=== PATIENT | female | born 1980 | race Caucasian/White ===

== ENCOUNTER 2020-08-22 21:24 | Emergency (ER) | payer OTHER, SELFPAY ==
[~2020-08-22] VITALS: Ht 175.3 cm; Wt 98.6 kg
[2020-08-22 21:25] VITALS: BP 107/64
== END 2020-08-23 03:29 | disposition left against medical advice (07) ==
LOC: M ED 21:24
DX: Z53.21 Procedure and treatment not carried out due to patient leaving prior to being seen by health care provider (principal)

== ENCOUNTER 2020-08-25 11:36 | Emergency (ER) | payer OTHER, SELFPAY ==
[~2020-08-25] VITALS: Ht 175.3 cm; Wt 96.9 kg
[2020-08-25] MEDS ORDERED: OSEL75CA2 (11:47)
[2020-08-25] MEDS ORDERED: PROA1AER2 (11:47)
[2020-08-25] MEDS ORDERED: NS 1,000 ML IV ONE (12:15)
[2020-08-25 12:49] LABS: HEMATOCRIT 40.5 % (36.0-47.0); HEMOGLOBIN 12.8 g/dl (12.0-15.5); MEAN CORPUSCULAR HEMOGLOBIN 26.9 pg (27.0-33.0); MEAN CORPUSCULAR HGB CONC 31.6 g/dl (32.0-36.5); MEAN CORPUSCULAR VOLUME 85.1 fl (80.0-96.0); PLATELET COUNT, AUTOMATED 185 10^3/uL (150-450); RED BLOOD COUNT 4.76 10^6/uL (4.00-5.40); WHITE BLOOD COUNT 3.4 10^3/uL (4.0-10.0)
[2020-08-25 13:13] LABS: ATYPICAL LYMPH 2 % (0-5); LYMPHOCYTES 23 % (16-44); MONOCYTES 3 % (0-5); NEUTROPHILS 66 % (28-66); PLATELET ESTIMATE NORMAL (NORMAL)
[2020-08-25 14:03] VITALS: BP 128/72
== END 2020-08-25 14:05 | disposition home or self-care (01) ==
LOC: M ED 11:36
DX: U07.1 COVID-19 (principal)

== ENCOUNTER → 2020-08-28 | Outpatient (CLI) | payer OTHER, SELFPAY ==
[~2020-08-28] MED LIST: OSEL75CA2; PROA1AER2
== END ==
LOC: M LABSMTC 13:10
PROVIDERS: ATTEND Pediatrics
DX: Z20.822 Contact with and (suspected) exposure to COVID-19 (principal)

== ENCOUNTER → 2021-01-25 | Outpatient (REF) | payer OTHER ==
[2021-01-25 16:53] LABS: BASO % 0.4 % (0.0-1.0); EOS # 0.1 10^3/uL (0.0-0.5); EOS % 1.7 % (0.0-3.0); HEMATOCRIT 40.1 % (36.0-47.0); HEMOGLOBIN 12.8 g/dl (12.0-15.5); LYMPH # 2.2 10^3/uL (1.5-5.0); LYMPH % 26.6 % (24.0-44.0); MEAN CORPUSCULAR HEMOGLOBIN 26.4 pg (27.0-33.0); MEAN CORPUSCULAR HGB CONC 31.9 g/dl (32.0-36.5); MEAN CORPUSCULAR VOLUME 82.9 fl (80.0-96.0); MONO # 0.6 10^3/uL (0.0-0.8); MONO % 7.6 % (2.0-8.0); NEUTROPHILS # 5.2 10^3/uL (1.5-8.5); NEUTROPHILS % 63.3 % (36.0-66.0); PLATELET COUNT, AUTOMATED 419 10^3/uL (150-450); RED BLOOD COUNT 4.84 10^6/uL (4.00-5.40); WHITE BLOOD COUNT 8.1 10^3/uL (4.0-10.0)
[2021-01-25 17:13] LABS: ESTRADIOL 109.9 PG/ML; FOLLICLE STIMULATING HORMONE 4.1 mIU/mL; FREE T4 0.84 NG/DL (0.76-1.46); LUTEINIZING HORMONE 3.7 mIU/mL; THYROID STIMULATING HORMONE 0.908 uIU/ML (0.358-3.740)
== END ==
LOC: M LAB REF 16:04
PROVIDERS: ATTEND Obstetrics & Gynecology
DX: N92.1 Excessive and frequent menstruation with irregular cycle (principal)

== ENCOUNTER → 2021-04-27 | Outpatient (CLI) | payer OTHER ==
[~2021-04-27] MED LIST changes: +D31000TA2 PO; +MULTTAB61 PO; +VITA500C24 PO; +ZINC1TAB2 PO
== END ==
LOC: M LABSMTC 11:19
PROVIDERS: ATTEND Anesthesiology
DX: Z01.812 Encounter for preprocedural laboratory examination (principal); Z20.822 Contact with and (suspected) exposure to COVID-19

== ENCOUNTER 2021-05-02 06:07 | Day surgery (SDC) | payer OTHER ==
[~2021-05-02] VITALS: Ht 175.3 cm; Wt 98.5 kg
[~2021-05-02 06:07] MED LIST changes: +LR 1,000 ML IV ONE; +ceFAZolin SOD 2 GM in IV 1 EA IV ONE
[2021-05-02 06:49] LABS: HEMATOCRIT 36.9 % (36.0-47.0); HEMOGLOBIN 11.4 g/dl (12.0-15.5); MEAN CORPUSCULAR HEMOGLOBIN 24.8 pg (27.0-33.0); MEAN CORPUSCULAR HGB CONC 30.9 g/dl (32.0-36.5); MEAN CORPUSCULAR VOLUME 80.2 fl (80.0-96.0); PLATELET COUNT, AUTOMATED 375 10^3/uL (150-450); WHITE BLOOD COUNT 6.7 10^3/uL (4.0-10.0)
[2021-05-02 07:12] LABS: BLOOD UREA NITROGEN 9 MG/DL (7-18); CALCIUM LEVEL 8.4 MG/DL (8.5-10.1); CARBON DIOXIDE LEVEL 25 MEQ/L (21-32); CHLORIDE LEVEL 110 MEQ/L (98-107); CREATININE FOR GFR 0.93 MG/DL (0.55-1.30); GLOMERULAR FILTRATION RATE > 60.0 (>58); GLUCOSE, FASTING 84 MG/DL (70-100); POTASSIUM SERUM 3.8 MEQ/L (3.5-5.1); SODIUM LEVEL 143 MEQ/L (136-145)
[2021-05-02] MEDS ORDERED: dexameTHASONE 4 MG/ML 1ML VIAL (J1100 PER 1MG) As Ordered ONE (07:13)
[2021-05-02] MEDS ORDERED: propofoL 200 MG/20 ML VIAL As Ordered ONE (07:13)
[2021-05-02] MEDS ORDERED: ROCURONIUM BROMIDE 50 MG/5 ML VIAL As Ordered ONE (07:13)
[2021-05-02] MEDS ORDERED: ACETAMINOPHEN 1000MG 100ML IV BTL (OFIRMEV) (J0131 PER 10MG) As Ordered ONE (07:13)
[2021-05-02] MEDS ORDERED: KETOROLAC 60MG 2ML VIAL As Ordered ONE (07:13)
[2021-05-02] MEDS ORDERED: ONDANSETRON 4MG/2ML VIAL As Ordered ONE (07:13)
[2021-05-02] MEDS ORDERED: MIDAZOLAM INJ 2MG/2ML VIAL (J2250 PER 1MG) As Ordered ONE (07:13)
[2021-05-02] MEDS ORDERED: fentaNYL 100 MCG/2 ML INJECTION (J3010) As Ordered ONE (07:13)
[2021-05-02] MEDS ORDERED: SUGAMMADEX SODIUM 500 MG/5 ML VIAL (BRIDION) As Ordered ONE (07:13)
[2021-05-02] MEDS ORDERED: LIDOCAINE 2% 100MG/5ML SDV (FOR ANES.) As Ordered ONE (07:13)
[2021-05-02] MEDS ORDERED: FLUORESCEIN OPHTH 1 MG STRIP As Ordered ONE (07:19)
[2021-05-02] MEDS ORDERED: BUPIVACAINE/EPIN 0.25% 30 ML VIAL As Ordered ONE (07:19)
[2021-05-02] MEDS ORDERED: FLUORESCEIN 10% (100MG/ML) 5 ML VIAL As Ordered ONE (07:20)
[2021-05-02] MEDS ORDERED: LIDOCAINE 5% OINT 30GM TUBE As Ordered ONE (07:53)
[2021-05-02] MEDS ORDERED: PERC5TAB12 PO (08:04)
[2021-05-02] MEDS ORDERED: HYDROmorphone HCL 2 MG/ML 1ML VIAL As Ordered ONE (08:18)
[2021-05-02] MEDS ORDERED: PERCOCET 5MG/325MG TAB PO PRN (09:40)
[2021-05-02] MEDS ORDERED: LR 1,000 ML IV SCH ×2 (09:40)
[2021-05-02] MEDS ORDERED: fentaNYL 100 MCG/2 ML INJECTION (J3010) IV PRN (09:40)
[2021-05-02] MEDS ORDERED: HYDROMORPHONE HCL 0.5 MG/ 0.5 ML SYRINGE (J1170 PER 1) IV PRN (09:40)
[2021-05-02] MEDS ORDERED: oxyCODONE 5MG TAB PO PRN (09:40)
[2021-05-02] MEDS ORDERED: ONDANSETRON 4MG/2ML VIAL IV PRN (09:40)
--- NOTE | 2021-05-02 10:06 | RO ---
OPERATIVE NOTE DATE OF OPERATION: 05/02/2021 INDICATION: Delmy is a 40-year-old female with excessive bleeding and fibroid uterus. After counseling, a decision was made to proceed with robotic-assisted total hysterectomy, removal of both tubes and cystoscopy. PREOPERATIVE DIAGNOSIS: 1. Excessive menstruation. 2. Fibroid uterus. POSTOPERATIVE DIAGNOSIS: 1. Excessive menstruation. 2. Fibroid uterus. PROCEDURE: 1. Robotic-assisted total hysterectomy. 2. Removal of both tubes. 3. Cystoscopy. ANESTHESIA: General. SURGEON: KEE FLORES DO COMPLICATIONS: None. ESTIMATED BLOOD LOSS: Less than 20 ml. FINDINGS: An enlarged fibroid uterus with normal tubes and ovaries. On cystoscopy, bilateral ureteral jets noted. No evidence of any bladder injury noted. DESCRIPTION OF PROCEDURE: After obtaining informed consent the patient was taken to the operating room where general anesthestic was found to be adequate. She was then prepped and draped in usual sterile fashion in dorsal lithotomy position. At this point a Mcbride catheter was placed in the bladder for drainage. We then placed a weighted speculum in the posterior fornix of the vagina using Burton retractor. The anterior lip of the cervix was then grasped with a single tooth tenaculum. The uterus was sounded to about 10 cm. The HUMI II uterine manipulator was then placed. Attention was then turned to the abdomen where an 8 mm infraumbilical incision was made. Using the Veress needle the abdomen was infiltrated with CO2 gas to approximately 3.5 liters. We then placed an 8 mm trocar along with the scope under direct visualization and two 8 mm left lateral ports were placed for robotic arm 1 and the assist port and on the right an 8 mm lateral port was robotic arm 2. The patient was then placed in steep Trendelenburg. The robot was brought to the patient's right side. The camera port was then docked. Targeting of the robot was performed after passing the targeting phase. The remaining 1 and 2 was then docked in the usual sterile fashion. The VesselSealer was placed on arm 1 and bipolar grasper on arm 2. I then unscrubbed and went to the surgeon's console and began the surgery. The abdomen was fully inspected and a large fibroid uterus was noted with normal tubes. At this point, the entire tube on the left was removed by cauterizing the mesosalpinx and removing the entire tube down to the uteroovarian ligament with the VesselSealer. At this point, the uteroovarian ligament was cauterized and cut, the round ligament also cauterized and cut. The uterine arteries were cauterized and cut in a similar fashion using the VesselSealer. We then did the opposite in a similar fashion. The anterior leaflet of the broad ligament was dissected to create a bladder flap, the bladder was pushed out of the operative field. At this point, the VesselSealer was removed and Endoshears were placed, anterior and posterior colpotomy was performed. The uterus as well as bilateral fallopian tubes were removed through the vagina. 1 ml of fluorescein was given by the anesthesiologist to assist in cystoscopy. We then closed the vaginal using 2-0 V-Loc suture that was introduced through the assist port. The cuff was closed in a running fashion. Good hemostasis noted. The pelvis was copiously irrigated with normal saline and suctioned out. I then rescrubbed and went to the patient's side, retrograde filled the bladder with 230 mL of normal saline and cystoscopy was performed. Bilateral ureteral jets noted, no evidence of any bladder injury noted. All instruments removed. The bladder was drained. The laparoscopic ports were then closed using 3-0 Vicryl in a subcuticular fashion. 0.25% Marcaine was placed for postoperative pain. The patient tolerated the procedure well and was transferred to recovery room in stable condition. cc: [facility]
[2021-05-02 11:30] VITALS: BP 119/72
[2021-05-02] MEDS ORDERED: SIMETHICONE 80MG CHEW TAB PO SCH (12:00)
[2021-05-02] MEDS ORDERED: IBUPROFEN 800 MG TAB PO SCH (18:00)
== END 2021-05-02 11:59 | disposition home or self-care (01) ==
LOC: M SDC 06:07
PROVIDERS: ATTEND Obstetrics & Gynecology
DX: N92.1 Excessive and frequent menstruation with irregular cycle (principal); D25.9 Leiomyoma of uterus, unspecified; J45.909 Unspecified asthma, uncomplicated; Z79.899 Other long term (current) drug therapy; Z88.1 Allergy status to other antibiotic agents
CPT/HCPCS: 36415; 58571; 80048; 81025; 85027; 86850; 86900; 86901; 88307; J0131; J0690; J1100; J1170; J1885; J2250; J2405; J3010; S2900

== ENCOUNTER 2022-07-04 15:30 | Emergency (ER) | payer OTHER ==
[~2022-07-04] VITALS: Ht 177.8 cm; Wt 98.6 kg
[~2022-07-04 15:30] MED LIST changes: -D31000TA2 PO; -LR 1,000 ML IV ONE; +PERC5TAB12 PO; +VITA100093 PO; -ceFAZolin SOD 2 GM in IV 1 EA IV ONE
[2022-07-04] MEDS ORDERED: ASPI81CH33 PO (15:45)
[2022-07-04 16:22] LABS: BASO % 0.2 % (0.0-1.0); EOS % 0.2 % (0.0-3.0); HEMATOCRIT 45.1 % (36.0-47.0); HEMOGLOBIN 14.6 g/dl (12.0-15.5); LYMPH # 2.2 10^3/uL (1.5-5.0); MEAN CORPUSCULAR HEMOGLOBIN 27.5 pg (27.0-33.0); MEAN CORPUSCULAR HGB CONC 32.4 g/dl (32.0-36.5); MEAN CORPUSCULAR VOLUME 85.1 fl (80.0-96.0); MONO # 0.5 10^3/uL (0.0-0.8); MONO % 5.2 % (2.0-8.0); NEUTROPHILS # 6.9 10^3/uL (1.5-8.5); PLATELET COUNT, AUTOMATED 371 10^3/uL (150-450); WHITE BLOOD COUNT 9.8 10^3/uL (4.0-10.0)
[2022-07-04 17:00] LABS: INR 0.98; PROTHROMBIN TIME 13.2 SECONDS (12.5-14.5)
[2022-07-04 17:01] LABS: PARTIAL THROMBOPLASTIN TIME 30.3 SECONDS (24.8-34.2)
[2022-07-04 17:03] LABS: CK-MB VALUE MASS < 1.0 NG/ML (<3.6)
[2022-07-04 17:04] LABS: LIPASE 28 U/L (12-53)
[2022-07-04 17:06] LABS: ALBUMIN 4.1 G/DL (3.2-5.2); ALKALINE PHOSPHATASE 68 U/L (46-116); ALT/SGPT 31 U/L (7.0-40); AST/SGOT 22 U/L (<34); BILIRUBIN,DIRECT 0.1 MG/DL (<0.4); BILIRUBIN,TOTAL 0.3 MG/DL (0.3-1.2); BLOOD UREA NITROGEN 11 MG/DL (9-23); CALCIUM LEVEL 9.1 MG/DL (8.5-10.1); CARBON DIOXIDE LEVEL 24 MMOL/L (20-31); CHLORIDE LEVEL 106 MMOL/L (98-107); CPK CREATINE PHOSPHOKINASE 131 U/L (34-145); GLOMERULAR FILTRATION RATE > 60.0 (>58); GLUCOSE, FASTING 93 MG/DL (60-100); MB/CK RELATIVE INDEX 0.76 (< OR =4); POTASSIUM SERUM 4.1 MMOL/L (3.5-5.1); SODIUM LEVEL 140 MMOL/L (136-145); TOTAL PROTEIN 7.2 G/DL (5.7-8.2)
[2022-07-04 17:27] LABS: THYROID STIMULATING HORMONE 0.944 uIU/ML (0.55-4.78)
[2022-07-04 18:09] LABS: HCG, SERUM QUALITATIVE NEGATIVE (NEGATIVE)
[2022-07-04] MEDS ORDERED: ISOVUE-370 76% 100ML VIAL As Ordered ONE (18:13)
[2022-07-04 20:41] LABS: CK-MB VALUE MASS < 1.0 NG/ML (<3.6)
[2022-07-04 20:53] LABS: CPK CREATINE PHOSPHOKINASE 118 U/L (34-145); MB/CK RELATIVE INDEX 0.84 (< OR =4)
[2022-07-04 21:15] VITALS: BP 110/79
== END 2022-07-04 21:41 | disposition home or self-care (01) ==
LOC: M ED 15:30
DX: R07.9 Chest pain, unspecified (principal); J45.909 Unspecified asthma, uncomplicated; Z88.1 Allergy status to other antibiotic agents; Z79.899 Other long term (current) drug therapy

== ENCOUNTER → 2022-09-14 | Outpatient (CLI) | payer OTHER ==
[~2022-09-14] MED LIST changes: +ASPI81CH33 PO
[2022-09-14 10:45] LABS: BASO % 0.2 % (0.0-1.0); EOS # 0.1 10^3/uL (0.0-0.5); EOS % 1.2 % (0.0-3.0); HEMATOCRIT 43.3 % (36.0-47.0); HEMOGLOBIN 13.9 g/dl (12.0-15.5); LYMPH # 1.6 10^3/uL (1.5-5.0); LYMPH % 23.6 % (24.0-44.0); MEAN CORPUSCULAR HEMOGLOBIN 27.5 pg (27.0-33.0); MEAN CORPUSCULAR HGB CONC 32.1 g/dl (32.0-36.5); MEAN CORPUSCULAR VOLUME 85.7 fl (80.0-96.0); MONO # 0.5 10^3/uL (0.0-0.8); MONO % 6.8 % (2.0-8.0); NEUTROPHILS # 4.5 10^3/uL (1.5-8.5); NEUTROPHILS % 67.7 % (36.0-66.0); PLATELET COUNT, AUTOMATED 339 10^3/uL (150-450); RED BLOOD COUNT 5.05 10^6/uL (4.00-5.40); WHITE BLOOD COUNT 6.6 10^3/uL (4.0-10.0)
[2022-09-14 11:02] LABS: ERYTHROCYTE SEDIMENTATION RATE 27 mm/hr (0-20)
[2022-09-14 11:16] LABS: ALBUMIN 3.8 G/DL (3.2-5.2); ALKALINE PHOSPHATASE 77 U/L (46-116); ALT/SGPT 54 U/L (7.0-40); AST/SGOT 15 U/L (<34); BILIRUBIN,TOTAL 0.5 MG/DL (0.3-1.2); BLOOD UREA NITROGEN 12 MG/DL (9-23); CALCIUM LEVEL 8.8 MG/DL (8.5-10.1); CARBON DIOXIDE LEVEL 26 MMOL/L (20-31); CHLORIDE LEVEL 107 MMOL/L (98-107); CREATININE FOR GFR 0.91 MG/DL (0.55-1.30); GLOMERULAR FILTRATION RATE > 60.0 (>58); GLUCOSE, FASTING 86 MG/DL (60-100); IRON (FE) 110 UG/DL (50-170); PERCENT SATURATION 34.8 % (13.2-45.0); SODIUM LEVEL 139 MMOL/L (136-145); TOTAL IRON BINDING CAPACITY 316 UG/DL (250-425); TOTAL PROTEIN 6.9 G/DL (5.7-8.2)
[2022-09-14 11:17] LABS: FREE T4 1.05 NG/DL (0.89-1.76); TOTAL T3 144.6 NG/DL (60.0-181.0)
[2022-09-14 11:18] LABS: FERRITIN 55.8 NG/ML (7.3-270.7); FREE T3 3.8 PG/ML (2.3-4.2); RHEUMATOID FACTOR QUANT 6.2 IU/ML (<14)
[2022-09-14 11:19] LABS: FOLATE > 24.00 NG/ML (>5.4); TOTAL 25(OH) VITAMIN D 62.5 NG/ML (20.0-100.0)
[2022-09-14 11:21] LABS: THYROID PEROXIDASE ANTIBODY 29 U/ML (<60.0)
== END ==
LOC: M LAB 09:47
PROVIDERS: ATTEND Family Medicine
DX: D50.9 Iron deficiency anemia, unspecified (principal)

== ENCOUNTER → 2022-10-16 | Outpatient (CLI) | payer OTHER | LOC: M LAB 12:15 | PROVIDERS: ATTEND Family Medicine | DX: D50.9 Iron deficiency anemia, unspecified (principal) ==

== ENCOUNTER → 2022-12-23 | Outpatient (CLI) | payer OTHER | LOC: M LAB 09:09 | PROVIDERS: ATTEND Family Medicine | DX: M35.9 Systemic involvement of connective tissue, unspecified (principal); E83.42 Hypomagnesemia; E27.8 Other specified disorders of adrenal gland ==

== ENCOUNTER → 2024-06-07 | Outpatient (CLI) | payer OTHER ==
[2024-06-09 02:03] LABS: IgG P18 AB NON-REACTIVE; IgG P23 AB NON-REACTIVE; IgG P28 AB NON-REACTIVE; IgG P30 AB NON-REACTIVE; IgG P39 AB NON-REACTIVE; IgG P41 AB NON-REACTIVE; IgG P45 AB NON-REACTIVE; IgG P58 AB NON-REACTIVE; IgG P66 AB NON-REACTIVE; IgG P93 AB NON-REACTIVE; IgM P23 AB NON-REACTIVE; IgM P39 AB NON-REACTIVE; IgM P41 AB NON-REACTIVE; LYME IgG WB INTERPRETATION NEGATIVE (NEGATIVE); LYME IgM WB INTERPRETATION NEGATIVE (NEGATIVE)
== END ==
LOC: M LAB 12:11
PROVIDERS: ATTEND Family Medicine
DX: A69.29 Other conditions associated with Lyme disease (principal)

== ENCOUNTER → 2024-12-17 | Outpatient (CLI) | payer BC ==
[2024-12-17 11:51] LABS: BASO % 0.5 % (0.0-1.0); EOS # 0.1 10^3/uL (0.0-0.5); EOS % 1.9 % (0.0-3.0); HEMATOCRIT 45.4 % (36.0-47.0); HEMOGLOBIN 14.5 g/dl (12.0-15.5); LYMPH # 2.1 10^3/uL (1.5-5.0); LYMPH % 32.7 % (24.0-44.0); MEAN CORPUSCULAR HEMOGLOBIN 27.8 pg (27.0-33.0); MEAN CORPUSCULAR HGB CONC 31.9 g/dl (32.0-36.5); MEAN CORPUSCULAR VOLUME 87.1 fl (80.0-96.0); MONO # 0.4 10^3/uL (0.0-0.8); MONO % 6.7 % (2.0-8.0); NEUTROPHILS # 3.8 10^3/uL (1.5-8.5); PLATELET COUNT, AUTOMATED 351 10^3/uL (150-450); RED BLOOD COUNT 5.21 10^6/uL (4.00-5.40); WHITE BLOOD COUNT 6.5 10^3/uL (4.0-10.0)
[2024-12-17 11:52] LABS: APPEARANCE, URINE CLEAR (CLEAR); BACTERIA, URINE AUTO NEGATIVE (NEGATIVE); BILIRUBIN, URINE AUTO NEGATIVE (NEGATIVE); BLOOD, URINE BLOOD NEGATIVE (NEGATIVE); COLOR, URINE YELLOW (YELLOW); GLUCOSE, URINE (UA) AUTO NEGATIVE (NEGATIVE); KETONE, URINE AUTO NEGATIVE (NEGATIVE); LEUKOCYTE ESTERASE, URINE AUTO NEGATIVE (NEGATIVE); NITRITE, URINE AUTO NEGATIVE (NEGATIVE); PROTEIN, URINE AUTO NEGATIVE (NEGATIVE); RBC, URINE AUTO 1 /HPF (0-3); SPECIFIC GRAVITY URINE AUTO 1.012 (1.002-1.035); SQUAMOUS EPITHELIAL CELL UR AU 0 /HPF (0-6); UROBILINOGEN, URINE AUTO 0.2 mg/dL (0.0-2.0); WBC, URINE AUTO 1 /HPF (0-3)
[2024-12-17 12:15] LABS: ERYTHROCYTE SEDIMENTATION RATE 31 mm/hr (0-20)
[2024-12-17 12:19] LABS: URIC ACID 3.8 MG/DL (3.1-7.8)
[2024-12-17 12:21] LABS: IRON (FE) 80 UG/DL (50-170); PERCENT SATURATION 25.8 % (13.2-45.0); TOTAL IRON BINDING CAPACITY 310 UG/DL (250-425)
[2024-12-17 12:22] LABS: C REACTIVE PROTEIN QUANTITATIV 0.81 MG/DL (<1.0)
[2024-12-17 12:23] LABS: ALBUMIN 3.9 G/DL (3.2-5.2); ALKALINE PHOSPHATASE 63 U/L (35-104); ALT/SGPT 27 U/L (7.0-40); AST/SGOT 19 U/L (<34); BILIRUBIN,TOTAL 0.3 MG/DL (0.3-1.2); BLOOD UREA NITROGEN 11 MG/DL (9-23); CALCIUM LEVEL 9.2 MG/DL (8.5-10.1); CARBON DIOXIDE LEVEL 25 MMOL/L (20-31); CHLORIDE LEVEL 107 MMOL/L (98-107); CREATININE FOR GFR 0.77 MG/DL (0.55-1.30); GLOMERULAR FILTRATION RATE > 90.0 (>58); GLUCOSE, FASTING 82 MG/DL (60-100); POTASSIUM SERUM 4.4 MMOL/L (3.5-5.1); SODIUM LEVEL 143 MMOL/L (136-145); THYROID PEROXIDASE ANTIBODY 34 U/ML (<60.0); THYROID STIMULATING HORMONE 0.912 uIU/ML (0.55-4.78); TOTAL PROTEIN 7.1 G/DL (5.7-8.2)
[2024-12-17 12:24] LABS: FERRITIN 83.1 NG/ML (7.3-270.7)
[2024-12-17 12:26] LABS: HEMOGLOBIN A1c 5.1 % (4.0-6.0)
[2024-12-17 14:10] LABS: FOLATE > 24.00 NG/ML (>5.4)
[2024-12-20 11:11] LABS: CHOLESTEROL,TOTAL 157 mg/dL (100-199); HDL-C 63 mg/dL (>39); HDL-P (TOTAL) 31.9 umol/L (>=30.5); LDL SIZE 20.7 nm (>20.5); LDL-C 83 mg/dL (0-99); LDL-P 976 nmol/L (<1000); LP-IR SCORE <25 (<=45); SMALL LDL-P 377 nmol/L (<=527); TRIGLYCERIDES 54 mg/dL (0-149)
[2024-12-20 15:08] LABS: MYELOPEROXIDASE ANTIBODY < 1.0 AI (<1.0)
[2024-12-21 15:17] LABS: APOLIPOPROTEIN A1 144 mg/dL (>=125); APOLIPOPROTEIN B 66 mg/dL (<90); APOLIPOPROTEIN B/A-1 RATIO 0.46 (<0.63)
[2024-12-21 15:43] LABS: HOMOCYST(E)INE SERUM 7.1 umol/L (<10.4)
[2024-12-22 07:07] LABS: Methylmalonic Acid 104 nmol/L (55-335)
== END ==
LOC: M LAB 10:13
PROVIDERS: ATTEND Family Medicine
DX: D50.9 Iron deficiency anemia, unspecified (principal)

== ENCOUNTER → 2024-12-20 | Outpatient (CLI) | payer BC ==
[2024-12-20 12:18] LABS: ESTRADIOL 104.2 PG/ML
[2024-12-20 12:19] LABS: PROGESTERONE 0.44 NG/ML
== END ==
LOC: M LAB 10:14
PROVIDERS: ATTEND Family Medicine
DX: R63.5 Abnormal weight gain (principal)